=== PATIENT | male | born 1985 | race American Indian/Alaskan Native ===

== ENCOUNTER 2021-01-15 06:07 | Emergency (ER) | payer OTHER ==
--- NOTE | 2021-01-15 07:01 | Emergency Department Report ---
HPI - General Chief Complaint: Extremity Injury, Upper Time Seen by Provider: 01/15/21 06:35 - HPI HPI: 35-year-old -[place] male presents to the emergency department via EMS from work with a complaint of a slip and fall. He says that he was "getting off of my katja and my boot must of slipped." The patient says that he fell onto his left side onto his arm and hip and "my wrist got bent back in a weird way." He complains of left shoulder and scapula pain, left wrist pain, and left hip pain. Patient denies any significant past medical history. He was placed in a sling by EMS but otherwise did not receive any medication for his symptoms prior to presentation today. ED Past Medical Hx - Past Medical History Previous Medical History?: Yes Hx Hypertension: Yes Additional medical history: Non compliant to Meds - Surgical History Past Surgical History?: No - Social History Smoking Status: Never Smoker Substance Use Type: None - Medications Home Medications: Home Medications Medication Instructions Recorded Confirmed Last Taken Type Ibuprofen [Motrin 800 MG tab] 800 mg PO Q8HR PRN #20 tablet 01/15/21 Unknown Rx amLODIPine 10 mg PO DAILY #30 tab 01/15/21 Unknown Rx ED Review of Systems ROS: Stated complaint: LEFT SHOULDER & HIP PAIN FROM GROUND LEVEL FALL Other details as noted in HPI Comment: All other systems reviewed and negative Constitutional: denies: chills, fever Respiratory: denies: cough, shortness of breath Cardiovascular: denies: chest pain, palpitations Gastrointestinal: denies: abdominal pain, vomiting Genitourinary: denies: dysuria, discharge Musculoskeletal: arthralgia, myalgia. denies: joint swelling Skin: denies: rash, lesions Neurological: denies: headache, weakness Physical Exam - Physical Exam Vital Signs: Vital Signs 01/15/21 06:25 Temperature 98.7 F Pulse Rate 68 Respiratory 18 Rate Blood Pressure 170/120 [Left] O2 Sat by Pulse 100 Oximetry Physical Exam: GENERAL: The patient is well-developed well-nourished. HENT: Normocephalic. Atraumatic. Patient has moist mucous membranes. EYES: Extraocular motions are intact. NECK: Supple. Trachea is midline. CHEST/LUNGS: Clear to auscultation. There is no respiratory distress noted. HEART/CARDIOVASCULAR: Regular. There is no tachycardia. There is no murmur. ABDOMEN: Abdomen is soft, nontender. Patient has normal bowel sounds. SKIN: Skin is warm and dry. NEURO: The patient is awake, alert, and oriented. The patient is cooperative. The patient has no focal neurologic deficits. Normal speech. Cranial nerves II through XII grossly intact. MUSCULOSKELETAL: There is tenderness to palpation along the left hip, left wrist, left shoulder, and left scapula, but no obvious deformity. Decreased range of motion secondary to pain. Radial pulse +2/4 and capillary refill less than 2 seconds to the affected left upper extremity. ED Course Vital Signs 01/15/21 06:25 Temperature 98.7 F Pulse Rate 68 Respiratory 18 Rate Blood Pressure 170/120 [Left] O2 Sat by Pulse 100 Oximetry ED Medical Decision Making - Radiology Data Radiology results: image reviewed interpreted by me: X-ray of the left scapula, left wrist, left shoulder, and left hip do not show any fractures, dislocations, signs of osteomyelitis, or any other acute process. - Medical Decision Making This patient presents to the emergency department with the complaint of pain to the left scapula, left shoulder, left wrist, and left hip, after a slip and fall while at work. He is awake, alert, oriented and does not appear in any respiratory or acute distress. He does not have any focal, motor or sensory deficits and his cranial nerves are intact. X-rays were done of the affected left scapula, shoulder, wrist and hip and these imaging studies did not show any evidence of fracture, dislocation or any other acute process. The patient's job asked for the patient to receive a UDS, which was done only after the patient gave permission to do so. It resulted as negative and the patient was given these results. He was placed in a sling and given outpatient referral for an orthopedist. The patient presents with elevated and uncontrolled blood pressure. He does admit to history of hypertension but also admits to noncompliance as his medications are "back home." He is unable to give me the name or list of his medications. He has been started on amlodipine/Norvasc. We discussed staying away from foods that are high in salt and caffeinated products, as well as keeping a blood pressure log. Critical Care Time: No Critical care attestation.: If time is entered above; I have spent that time in minutes in the direct care of this critically ill patient, excluding procedure time. ED Disposition Clinical Impression: Left hip pain, Pain of left scapula, Left wrist pain, Elevated blood pressure reading Fall Qualifiers: Encounter type: initial encounter Qualified Code(s): W19.XXXA - Unspecified fall, initial encounter Left shoulder pain Qualifiers: Chronicity: acute Qualified Code(s): M25.512 - Pain in left shoulder Disposition: HOME / SELF CARE / HOMELESS Is pt being admited?: No Condition: Stable Instructions: Shoulder Pain, Musculoskeletal Pain, Wrist Pain, Adult Additional Instructions: Please follow-up with a primary care physician and an orthopedist. I am giving you a referral for a local orthopedist, Dr. Phillips, but it is possible that you will need to follow-up with someone specific for your Worker's Compensation. Return to the emergency department with any worsening of your symptoms, new or concerning symptoms not addressed during this current emergency department visit, or with any acute distress. Prescriptions: amLODIPine 10 mg PO DAILY #30 tab Ibuprofen [Motrin 800 MG tab] 800 mg PO Q8HR PRN #20 tablet PRN Reason: Pain , Severe (7-10) Referrals: SHINE PHILLIPS MD [Staff Physician] - 3-5 Days Time of Disposition: 09:25
[2021-01-15] MEDS ORDERED: IBUPROFEN 800 MG TAB PO ONE (07:48)
--- NOTE | 2021-01-15 08:14 | XRay Report ---
LEFT HIP 2 VIEWS INDICATION: Trauma, L HIP PAIN . COMPARISON: None. IMPRESSION: No acute osseous or soft tissue abnormality. No significant DJD. LEFT WRIST 3 VIEWS INDICATION: Fall, left wrist pain COMPARISON: None. IMPRESSION: No acute osseous or soft tissue abnormality. No significant DJD. LEFT SHOULDER 3 VIEWS INDICATION: Trauma, left shoulder pain. COMPARISON: None. IMPRESSION: No acute osseous or soft tissue abnormality. No significant DJD. LEFT SCAPULA 2 VIEWS INDICATION: Fall, scapular pain. COMPARISON: None. IMPRESSION: No acute osseous or soft tissue abnormality. Signer Name: Yohan Patrick Jr, MD Signed: 01/15/2021 8:09 AM Workstation Name: [id number]
[2021-01-15 09:21] LABS: Amphetamine Screen,Urine Negative; Benzodiazepines Screen,Urine Negative; Cannabinoid Screen,Urine Negative; Cocaine Screen,Urine Negative; Methadone Screen,Urine Negative; Opiate Screen,Urine Negative
[2021-01-15 10:01] VITALS: BP 175/124
== END 2021-01-15 10:01 | disposition home or self-care (01) ==
LOC: ED 06:07
DX: M25.512 Pain in left shoulder (principal); M25.552 Pain in left hip; M25.532 Pain in left wrist; R03.0 Elevated blood-pressure reading, without diagnosis of hypertension; I10 Essential (primary) hypertension; Z98.890 Other specified postprocedural states; W18.39XA Other fall on same level, initial encounter; Y93.89 Activity, other specified; Y92.89 Other specified places as the place of occurrence of the external cause; Y99.8 Other external cause status
CPT/HCPCS: 80307; 99284